=== PATIENT | female | born 1940 | race Caucasian/White ===

== ENCOUNTER 2018-03-18 11:05 | Outpatient (CLI) | payer MEDICARE ==
--- NOTE | 2018-03-19 14:49 | RAD ---
MODIFIED BARIUM SWALLOW PERFORMED WITH A SPEECH THERAPIST: Date: 03/18/18 HISTORY: Dysphagia following cerebrovascular disease and unspecified dysphagia. Feeding difficulties. TECHNIQUE: Patient was given puree, nectar thick liquid via cup, thin liquid via cup, mechanical soft texture fo od, regular texture food, and a barium tablet. FINDINGS: Patient showed some residue with pureed textures in the vallecular region. Patient had silent penetra tion with thin liquids and nectar thick liquids. IMPRESSION: Some persistent residue with various consistencies, fairly deep penetration observed on some of these images. Please refer to speech therapist report for additional findings. POS: [facility]
== END 2018-03-18 11:06 | disposition home or self-care (01) ==
PROVIDERS: ATTEND Specialist
DX: I69.891 Dysphagia following other cerebrovascular disease (principal)
CPT/HCPCS: 74230; G8996-GN-CJ; G8997-GN-CJ; G8998-GN-CJ

== ENCOUNTER 2018-07-01 13:09 | Outpatient (CLI) | payer MEDICARE ==
--- NOTE | 2018-07-01 15:14 | RAD ---
CERVICAL SPINE 3 VIEWS: HISTORY: M50.30, cervical disk degeneration with neck pain radiating to right shoulder. Flexion, extension, and neutral upright lateral views of the cervical spine are performed. Very mild anterolisthesis of C4 on C5 and retrolisthesis of C5 on C6 with disk-osteophytosis and fairly marked facet arthrosis. No prevertebral soft tissue swelling. No evidence for abnormal translation betwee n flexion and extension. IMPRESSION: Cervical spondylosis with mild anterolisthesis of C4 on C5 and retrolisthesis of C5 on C6 without abn ormal translation between flexion and extension. POS: [facility]
--- NOTE | 2018-07-01 15:30 | MRI ---
MRI CERVICAL SPINE WITHOUT CONTRAST: Date: 07/01/18 Multiplanar, multisequential imaging of cervical spine obtained. INDICATION: Cervical spine. Cervical region disc degeneration. Neck pain and right shoulder pain. Correlation made to CT cervical spine dated 11/17/17. FINDINGS: The cervical vertebra maintain height and alignment. There are mild degenerative changes seen. Anteri or osteophytes in the cervical vertebra. Slight anterolisthesis at C4-5 and slight posterolisthesis a t C5-6 is stable from the prior CT. Posterior disc bulge and spondylosis at C3-4 flattens the thecal sac and mildly effaces the anterior subarachnoid space. Right foraminal stenosis due to facet and uncinate hypertrophy. At C4-5, there is slight anterolisthesis with posterior disc bulge and spondylosis flattening the the juanito sac and effacing the anterior subarachnoid space. No cord impingement. No significant foraminal s tenosis. At C5-6, there is slight posterolisthesis, as noted above. Posterior disc bulge and spondylosis abuts the anterior cord. Right foraminal encroachment due to facet and uncinate hypertrophy. At C6-7, mild disc bulge and spondylosis flatten thecal sac. The anterior subarachnoid space is prese rved. No evidence of significant foraminal stenosis. Cervical cord signal appears normal. IMPRESSION: There are degenerative changes of the cervical spine. The posterior disc bulge and spondylytic change abut the cord at C5-6. There are changes at other levels as described above. POS: [facility]
== END 2018-07-01 13:10 | disposition home or self-care (01) ==
LOC: TBSIIMAG 13:09
PROVIDERS: ATTEND Neurological Surgery
DX: M50.30 Other cervical disc degeneration, unspecified cervical region (principal); M47.812 Spondylosis without myelopathy or radiculopathy, cervical region; M43.12 Spondylolisthesis, cervical region; M50.21 Other cervical disc displacement, high cervical region
CPT/HCPCS: 72040; 72141

== ENCOUNTER 2018-08-25 16:25 | Observation (INO) | payer MEDICARE, OTHER ==
[2018-08-25] MEDS ORDERED: Acetaminophen 500 MG TAB ONE (17:58)
[2018-08-25] MEDS ORDERED: HYDROcodone/Acetaminophen 10/325 mg Tablet PO PRN (18:08)
[2018-08-25] MEDS ORDERED: Acetaminophen 325 MG TAB PO PRN (18:08)
[2018-08-25] MEDS ORDERED: Senokot S 8.6-50 MG TAB PO PRN (18:08)
[2018-08-25 19:45] LABS: Troponin I Less than 0.010 ng/mL (< 0.028)
[2018-08-25] MEDS: Sodium Chloride 0.9% 1,000 ML IV SCH (19:50)
[2018-08-25 20:11] VITALS: BMI 21.8
[2018-08-25] MEDS: Oseltamivir 75 MG CAP PO SCH (20:49)
[2018-08-25] MEDS: Famotidine 20 MG TAB PO SCH (20:50)
[2018-08-25] MEDS ORDERED: Lorazepam 0.5 MG TAB PO PRN (22:19)
[2018-08-25] MEDS ORDERED: Cyclobenzaprine 10 MG TAB PO PRN (22:19)
--- NOTE | 2018-08-26 00:37 | HP ---
PRIMARY CARE PHYSICIAN: Dr. Torres. BASKET MENDER: Dr. Ellsworth. CHIEF COMPLAINT: Chest pain, back pain, and generalized weakness. HISTORY OF PRESENT ILLNESS: Ms. Aguilar is a 77-year-old female who reported to the emergency room today. In [place], reported chest pain for the last 3 days. It radiated to her back. Initially in [place], her blood pressure was 185/70. During the workup there, she was given some nitroglycerin paste, aspirin, and labetalol for her blood pressure. She did test positive for flu B. She was given dose of Tamiflu. She reports the pain is 5/10 in her left side middle, describes as an achy sensation. She does deny any chills, fever, shortness of breath, cough, rhinorrhea, abdominal pain, nausea, vomiting, diarrhea. Does have a pertinent past medical history including CAD, hypothyroidism, peripheral neuropathy. Reports she takes hydrocodone for this on a daily basis, which is given to her by her pain doctor, Dr. Webster. The patient was subsequently transferred to the emergency room at [facility] ER and admitted for chest pain. EKG in the emergency room in [place] shows normal sinus rhythm, rate is 65 with no ectopics, ST segments, T-waves are normal, conduction normal, axis is normal. Initial troponin is undetectable. The patient admitted to the observation unit for further management. PAST MEDICAL HISTORY: Coronary artery disease. Reports that she has had a stress test in the past in the Dr. Ellsworth' office, which she reports is normal. Does have hypothyroidism, peripheral neuropathy to bilateral lower extremities. PAST SURGICAL HISTORY: Includes hysterectomy, cardiac ablation, internal TENS unit in right hip. Reports that she did have a neurostimulator in the right hip, which was taken out. PSYCHIATRIC HISTORY: Includes anxiety and depression. SOCIAL HISTORY: Denies alcohol use. Denies drug use. Denies smoking history. Lives at home with family. ALLERGIES: NONE. CURRENT MEDICATIONS: Include, 1. Ativan 1 mg p.r.n. as needed for anxiety. 2. Gabapentin 600 mg p.o. b.i.d. 3. Estradiol 1 mg p.o. once daily. 4. Levothyroxine 137 mcg p.o. q.a.m. REVIEW OF SYSTEMS: CONSTITUTIONAL: The patient denies chills, fever, or malaise. EYES: Denies any eye pain. Denies any vision changes. ENT: Denies any rhinorrhea or sore throat CARDIOVASCULAR: Reports chest pain. Denies diaphoresis. Denies dyspnea on exertion. RESPIRATORY: Denies cough or shortness of breath. GI: Denies abdominal pain. Denies nausea, vomiting, or diarrhea. MUSCULOSKELETAL: Denies any recent falls. Does report myalgias. Reports chest pain is achy and radiates to her back. NEUROLOGIC: Does report headache. Denies dizziness. Denies any focal weakness. Denies mental status changes. All other systems reviewed and negative unless mentioned in the HPI. PHYSICAL EXAMINATION: VITAL SIGNS: Blood pressure 184/80, pulse is 65, respirations 15, temperature is 98, O2 sats are 100% on room air. CONSTITUTIONAL: The patient appears nontoxic, appears pain free, is alert and oriented to person, place, and time. HEENT: Head is atraumatic and normocephalic. Eyes, pupils are equally round and reactive to light. Extraocular muscles are intact. NECK: Normal range of motion. Trachea is midline. RESPIRATORY/CHEST: Breath sounds are clear. No signs of respiratory distress. CARDIOVASCULAR: Heart rate is normal rate and rhythm. Heart sounds are normal S1 and S2. ABDOMEN: Nontender on palpation. Bowel sounds are heard. EXTREMITIES: Upper extremities, normal range of motion. Radial pulses are equal bilaterally. Lower extremities, normal range of motion. Pedal pulses are equal bilaterally. No edema is noted. NEUROLOGIC: Oriented to person, place, and time. Speech is normal. Gait was not assessed. SKIN: Warm, dry, and normal in color. No rash is noted. ASSESSMENT AND PLAN: 1. Chest pain, possibly related to flu B diagnosis. We will trend troponins. 2. Flu B. We will continue the Tamiflu. We will give the patient some gentle hydration with IV fluid at 75 mL/hr. Tylenol or Motrin as needed for myalgias and headache. 3. Hypothyroidism. We will continue home medications. We will check thyroid level in the morning. 4. Peripheral neuropathy. We will continue her home medications. 5. Gastrointestinal and deep venous thrombosis prophylaxis will be started. 6. Hospital course will be dependent on clinical findings. Job ID: [id number]
[2018-08-26 05:11] LABS: #Basophils 0.1 thou/uL (0.0-0.2); #Eosinphils 0.1 thou/uL (0.0-0.7); #Lymphocytes 2.8 thou/uL (1.20-3.40); #Monocytes 0.5 thou/uL (0.11-0.59); #Neutrophils 3.9 thou/uL (1.40-6.50); %Basophils 1.1 % (0.0-1.0); %Eosinophils 1.7 % (0.0-10.0); %Lymphocytes 37.8 % (21.0-51.0); %Monocytes 6.4 % (0.0-10.0); Hemoglobin 12.9 g/dL (12.0-16.0); Mean Corpuscular HGB CONC 33.5 g/dL (32.0-36.0); Mean Corpuscular Hemoglobin 33.8 pg (27.0-31.0); Mean Platelet Volume 6.8 fL (7.4-10.4); Platelet Count 236 thou/uL (130-400); RBC Distribution Width 11.7 % (11.5-14.5); White Blood Cell (WBC) Count 7.4 thou/uL (4.8-10.8)
[2018-08-26 05:49] LABS: Anion Gap 18 mmol/L (10-20); BUN (Urea Nitrogen) 14 mg/dL (9.8-20.1); Calc. Creatinine Clearance 69 mL/min (70-130); Calcium 9.4 mg/dL (7.8-10.44); Carbon Dioxide 18 mmol/L (23-31); Chloride 106 mmol/L (98-107); Cholesterol 204 mg/dl (< 200 Desired); Estimated GFR-MDRD 79; Glucose 86 mg/dL (83-110); HDL Cholesterol 68 mg/dL (>60 Neg Risk); LDL Cholesterol, Calculated 118 mg/dL; Potassium 3.8 mmol/L (3.5-5.1); Sodium 138 mmol/L (136-145); Triglycerides 90 mg/dL (Less than 150)
[2018-08-26 05:51] LABS: Free T4 (Free Thyroxine) 0.62 ng/dL (0.70-1.48)
[2018-08-26 05:59] LABS: Thyroid Stimulating Hormone 32.2403 uIU/mL (0.35-4.94)
[2018-08-26] MEDS ORDERED: Levothyroxine Sodium 112 MCG TAB PO SCH (06:00)
[2018-08-26] MEDS ORDERED: Levothyroxine Sodium 25 MCG TAB PO SCH (06:00)
[2018-08-26] MEDS: Oseltamivir 75 MG CAP PO SCH (07:45)
[2018-08-26] MEDS: Famotidine 20 MG TAB PO SCH (07:45)
[2018-08-26] MEDS: Sodium Chloride 0.9% 1,000 ML IV SCH (07:46)
[2018-08-26] MEDS ORDERED: hydrALAZINE 20 MG/ML VIAL SLOW IVP PRN (08:49)
[2018-08-26] MEDS ORDERED: Gabapentin 300 MG CAP PO SCH (09:00)
[2018-08-26] MEDS ORDERED: Estradiol 1 MG TAB PO SCH (09:00)
[2018-08-26] MEDS ORDERED: Enoxaparin Sodium 40 MG/0.4 ML SYRINGE SC SCH (09:00)
[2018-08-26] MEDS ORDERED: Lisinopril 2.5 MG TAB PO SCH (09:00)
--- NOTE | 2018-08-26 10:35 | PDOC.PN ---
- Subjective Encounter Start Date: 08/26/18 Encounter Start Time: 10:30 Patient lying in bed, she reports not feeling well this morning. She is positive for influenza B. She denies chest pain, palpitations or abdominal pain. BP elevated this morning, but she denies taking any medications at home for blood pressure. TSH also elevated with low T4, but she reports taking synthroid regularly. - Objective MAR Reviewed: Yes Vital Signs & Weight: Vital Signs (12 hours) Temp Pulse Resp BP Pulse Ox 08/26/18 09:24 71 08/26/18 07:25 98.7 F 71 12 200/79 H 96 08/26/18 05:17 97.7 F 73 18 160/94 H 98 08/25/18 23:57 97.3 F L 62 12 159/74 H 95 Weight Weight 143 lb 11.2 oz Result Diagrams: 08/26/18 04:24 08/26/18 04:24 Radiology Reviewed by me: Yes Phys Exam - Physical Examination Constitutional: NAD HEENT: PERRLA, oral pharynx no lesions Neck: no nodes, supple, full ROM Respiratory: no wheezing, clear to auscultation bilateral Cardiovascular: RRR, no significant murmur Gastrointestinal: soft, non-tender, positive bowel sounds Musculoskeletal: no edema, pulses present Neurological: non-focal, moves all 4 limbs Lymphatic: no nodes Psychiatric: A&O x 3 Deviation from normal: Flat affect Skin: no rash, cap refill <2 seconds Dx/Plan (1) Influenza B Code(s): J10.1 - FLU DUE TO OTH IDENT INFLUENZA VIRUS W OTH RESP MANIFEST Status: Acute (2) Hypertension Code(s): I10 - ESSENTIAL (PRIMARY) HYPERTENSION Status: Acute (3) Hypothyroidism Code(s): E03.9 - HYPOTHYROIDISM, UNSPECIFIED Status: Chronic - Plan cont current plan of care, PT/OT, DVT proph w/lovenox * Continue tamiflu BID * TSH high with low T4, increase levothyroxine to 150mcg * Start IV hydralazine prn SBP >170, add lisinopril 2.5mg daily and monitor BPs * Continue other home medications * PT * Recheck BMP in am replace electrolytes as needed.
--- NOTE | 2018-08-26 16:13 | HP ---
HISTORY OF PRESENT ILLNESS: This patient is an elderly lady who presented with flu-like symptoms, diffuse aching, back pain. In the emergency room, she was found to have influenza B. PHYSICAL EXAMINATION: Physical examination was unrevealing. CHEST: Clear. HEART: Regular rate and rhythm. ASSESSMENT AND PLAN: She was started on Tamiflu. She has abnormalities of her thyroid system, which are being adjusted. Currently, she has improved. Continue on Tamiflu. Thyroid medicine has been changed. Hopefully, she will be able to be discharged in the next 24 hours on medication for flu. No evidence at this time for cardiovascular workup. Job ID: [id number]
[2018-08-26 16:39] VITALS: BP 133/61; TEMP 98
[2018-08-27] MEDS ORDERED: Levothyroxine Sodium 125 MCG TAB PO SCH (06:00)
[2018-08-27] MEDS ORDERED: Levothyroxine 150 MCG TAB PO SCH (06:00)
--- NOTE | 2018-08-28 21:00 | EKG ---
Test Reason : CHEST PAIN Blood Pressure : / mmHG Vent. Rate : 065 BPM Atrial Rate : 065 BPM P-R Int : 140 ms QRS Dur : 084 ms QT Int : 460 ms P-R-T Axes : 027 045 022 degrees QTc Int : 478 ms Normal sinus rhythm Normal ECG Confirmed by DENISE LAM, MANUEL Cassidy ([id number]), editor school photograph PABLO SLOAN ([id number]) on 08/28/2018 9:00:27 PM Referred By: DENISE Confirmed By:MANUEL WALKER MD
== END 2018-08-26 17:31 | disposition home or self-care (01) ==
LOC: ERS 16:25 → 2SW 17:22
PROVIDERS: ADMIT Emergency Medicine; ATTEND Emergency Medicine
DX: R07.9 Chest pain, unspecified (principal); J10.1 Influenza due to other identified influenza virus with other respiratory manifestations; E03.9 Hypothyroidism, unspecified; G62.9 Polyneuropathy, unspecified; F41.8 Other specified anxiety disorders; F32.9 Major depressive disorder, single episode, unspecified; Z79.899 Other long term (current) drug therapy
CPT/HCPCS: 80048; 80061; 84439; 84443; 84481; 84484; 85025; 85379; 93005; 96372; 96374; 97116; 97139; 99285; G0378 ×2; 36415; J0360; J1650

== ENCOUNTER 2020-12-08 13:23 | Inpatient (IN) | payer MEDICARE, OTHER ==
[2020-12-08 16:46] VITALS: BMI 20.8
[2020-12-08 19:09] LABS: Troponin I 2.075 ng/mL (< 0.028)
[2020-12-08] MEDS ORDERED: Enoxaparin Sodium 60 MG/0.6 ML SYRINGE SC SCH (19:30)
[2020-12-08] MEDS ORDERED: Nitroglycerin 2% Ointment 1 INCH/1 GM Packet TOP SCH (19:30)
[2020-12-08] MEDS: Morphine 2 MG/ML VIAL SLOW IVP PRN (19:39)
[2020-12-08] MEDS ORDERED: HYDROcodone/Acetaminophen 5/325 mg Tablet PO PRN (19:56)
[2020-12-08] MEDS ORDERED: Acetaminophen 325 MG TAB PO PRN (19:56)
[2020-12-08] MEDS ORDERED: Ondansetron ODT 4 MG TAB PO PRN (19:56)
[2020-12-08] MEDS ORDERED: Ondansetron PF 4 MG/2 ML Vial IVP PRN (19:56)
[2020-12-08] MEDS ORDERED: Lorazepam 1 MG TAB PO PRN (22:56)
[2020-12-09 00:08] LABS: SARS-CoV-2 PCR by NAA Not Detected (NotDetected)
[2020-12-09] MEDS: Morphine 2 MG/ML VIAL SLOW IVP PRN ×2 (02:12→12:27)
[2020-12-09] MEDS: Levothyroxine Sodium 112 MCG TAB PO SCH (04:44)
[2020-12-09] MEDS: Levothyroxine Sodium 25 MCG TAB PO SCH (04:44)
[2020-12-09 04:58] LABS: #Basophils 0.1 thou/uL (0.0-0.2); #Eosinphils 0.2 thou/uL (0.0-0.7); #Lymphocytes 2.9 thou/uL (1.20-3.40); #Monocytes 0.5 thou/uL (0.11-0.59); #Neutrophils 2.7 thou/uL (1.40-6.50); %Basophils 0.9 % (0.0-1.0); %Eosinophils 2.7 % (0.0-10.0); %Lymphocytes 46.2 % (21.0-51.0); %Monocytes 7.2 % (0.0-10.0); Hemoglobin 10.3 g/dL (12.0-16.0); Mean Corpuscular HGB CONC 33.1 g/dL (32.0-36.0); Mean Corpuscular Hemoglobin 32.4 pg (27.0-31.0); Mean Platelet Volume 7.8 fL (7.4-10.4); Platelet Count 170 thou/uL (130-400); RBC Distribution Width 11.5 % (11.5-14.5); Red Blood Cell (RBC) Count 3.17 mill/uL (4.20-5.40); White Blood Cell (WBC) Count 6.3 thou/uL (4.8-10.8)
[2020-12-09 05:22] LABS: Anion Gap 8 mmol/L (10-20); BUN (Urea Nitrogen) 15 mg/dL (9.8-20.1); Calc. Creatinine Clearance 69 mL/min (70-130); Calcium 8.7 mg/dL (7.8-10.44); Carbon Dioxide 24 mmol/L (23-31); Chloride 111 mmol/L (98-107); Glucose 94 mg/dL (83-110); Potassium 4.4 mmol/L (3.5-5.1); Sodium 139 mmol/L (136-145)
[2020-12-09] MEDS ORDERED: Loratadine 10 MG TAB PO PRN (07:57)
[2020-12-09] MEDS ORDERED: Cepastat Lozenges 1 LOZ PO PRN (07:57)
[2020-12-09] MEDS ORDERED: Zolpidem Tartrate 5 MG TAB PO PRN (07:57)
[2020-12-09] MEDS ORDERED: Calcium Carbonate 500 MG ChewTAB PO PRN (07:57)
[2020-12-09] MEDS ORDERED: Bisacodyl 5 MG TAB PO PRN (07:57)
[2020-12-09] MEDS ORDERED: hydrALAZINE 20 MG/ML VIAL SLOW IVP PRN (07:57)
[2020-12-09] MEDS ORDERED: GUAIFENESIN SF SOLN 200 MG/10 ML UDCUP PO PRN (07:57)
[2020-12-09] MEDS ORDERED: Sodium Chloride 0.65% Nasal 44 ML BOT EA NARE PRN (07:57)
[2020-12-09] MEDS ORDERED: Loperamide HCl 2 MG CAP PO PRN (07:57)
[2020-12-09] MEDS ORDERED: Senokot S 8.6-50 MG TAB PO PRN (07:57)
[2020-12-09 08:26] LABS: Critical Call Chem Troponin I DECREASING
[2020-12-09 08:48] LABS: CKMB 6.8 ng/mL (0-6.6)
[2020-12-09] MEDS ORDERED: Aspirin 81 mg Enteric Coated Tablet PO SCH (09:00)
[2020-12-09] MEDS ORDERED: Nitroglycerin 2% Ointment 1 INCH/1 GM Packet TOP SCH (09:00)
[2020-12-09] MEDS: Gabapentin 300 MG CAP PO SCH ×4 (09:47→20:44)
[2020-12-09] MEDS: Enoxaparin Sodium 60 MG/0.6 ML SYRINGE SC SCH ×2 (09:47→20:43)
[2020-12-09] MEDS: Aspirin 81 mg Enteric Coated Tablet PO SCH (09:49)
[2020-12-09] MEDS: Estradiol 1 MG TAB PO SCH (09:49)
[2020-12-09 10:17] LABS: Hemoglobin 11.2 g/dL (12.0-16.0); Platelet Count 167 thou/uL (130-400)
[2020-12-09] MEDS ORDERED: Communication Order-Pharmacy FS SCH (14:15)
[2020-12-09] MEDS: Atorvastatin Calcium 40 MG TAB PO SCH (20:43)
[2020-12-09] MEDS: Metoprolol Tartrate 25 MG TAB PO SCH (20:44)
[2020-12-10 05:15] LABS: #Basophils 0.1 thou/uL (0.0-0.2); #Eosinphils 0.2 thou/uL (0.0-0.7); #Monocytes 0.6 thou/uL (0.11-0.59); #Neutrophils 4.6 thou/uL (1.40-6.50); %Basophils 1.2 % (0.0-1.0); %Eosinophils 2.3 % (0.0-10.0); %Lymphocytes 35.5 % (21.0-51.0); %Monocytes 6.9 % (0.0-10.0); Hemoglobin 11.8 g/dL (12.0-16.0); Mean Corpuscular HGB CONC 32.8 g/dL (32.0-36.0); Mean Corpuscular Hemoglobin 31.8 pg (27.0-31.0); Mean Corpuscular Volume 96.9 fL (78.0-98.0); Mean Platelet Volume 7.6 fL (7.4-10.4); Platelet Count 201 thou/uL (130-400); RBC Distribution Width 11.4 % (11.5-14.5); Red Blood Cell (RBC) Count 3.72 mill/uL (4.20-5.40); White Blood Cell (WBC) Count 8.5 thou/uL (4.8-10.8)
[2020-12-10 05:40] LABS: ALT (SGPT) 9 U/L (8-55); AST (SGOT) 18 U/L (5-34); Albumin 3.6 g/dL (3.4-4.8); Alkaline Phosphatase 86 U/L (40-110); Anion Gap 13 mmol/L (10-20); BUN (Urea Nitrogen) 11 mg/dL (9.8-20.1); Bilirubin, Total 0.7 mg/dL (0.2-1.2); Calc. Creatinine Clearance 66 mL/min (70-130); Carbon Dioxide 22 mmol/L (23-31); Cardiac Risk 2.9 (Less than 4.5); Chloride 107 mmol/L (98-107); Cholesterol 149 mg/dl (< 200 Desired); Globulin 2.9 g/dL (2.4-3.5); Glucose 99 mg/dL (83-110); HDL Cholesterol 52 mg/dL (>60 Neg Risk); LDL Cholesterol, Calculated 81 mg/dL; Magnesium 1.8 mg/dL (1.6-2.6); Potassium 3.8 mmol/L (3.5-5.1); Protein, Total 6.5 g/dL (5.8-8.1); Sodium 138 mmol/L (136-145); Triglycerides 80 mg/dL (Less than 150)
[2020-12-10] MEDS: Levothyroxine Sodium 112 MCG TAB PO SCH (05:46)
[2020-12-10] MEDS: Metoprolol Tartrate 25 MG TAB PO SCH ×2 (05:46→21:20)
[2020-12-10] MEDS: Aspirin 81 mg Enteric Coated Tablet PO SCH (05:46)
[2020-12-10] MEDS: Levothyroxine Sodium 25 MCG TAB PO SCH (05:46)
[2020-12-10] MEDS ORDERED: Heparin 0 ML ONE (08:47)
[2020-12-10] MEDS ORDERED: Lidocaine 1% (PF) 30 ML VIAL ONE ×2 (08:47→11:11)
[2020-12-10] MEDS ORDERED: Iopamidol-370 76% 500 ML 1 ML ONE (09:26)
[2020-12-10] MEDS ORDERED: Iopamidol 370 76% 50 ML VIAL FS ONE (09:58)
[2020-12-10] MEDS ORDERED: Iopamidol 370 76% 100 ML VIAL ONE (09:58)
[2020-12-10] MEDS: Estradiol 1 MG TAB PO SCH (10:46)
[2020-12-10] MEDS: Gabapentin 300 MG CAP PO SCH ×4 (10:46→21:20)
[2020-12-10] MEDS ORDERED: Nitroglycerin 100MG/250ML BOT 250 ML ONE (11:53)
[2020-12-10] MEDS ORDERED: Verapamil 5 MG/2 ML VIAL ONE (11:53)
[2020-12-10] MEDS ORDERED: Heparin 10,000 UNITS/ 10 ML VIAL ONE (11:53)
[2020-12-10] MEDS ORDERED: Midazolam HCl 2 mg/2 ml Vial ONE (11:56)
[2020-12-10] MEDS ORDERED: TICAGRELOR 90 MG TABLET ONE (12:50)
[2020-12-10] MEDS ORDERED: TICAGRELOR 90 MG TABLET PO SCH (13:18)
[2020-12-10 17:46] LABS: #Lymphocytes 1.5 thou/uL (1.20-3.40); #Monocytes 0.7 thou/uL (0.11-0.59); #Neutrophils 8.1 thou/uL (1.40-6.50); %Basophils 0.4 % (0.0-1.0); %Eosinophils 0.5 % (0.0-10.0); %Lymphocytes 14.6 % (21.0-51.0); %Monocytes 6.9 % (0.0-10.0); %Neutrophils 77.5 % (42.0-75.0); Hemoglobin 12.8 g/dL (12.0-16.0); Mean Corpuscular HGB CONC 32.9 g/dL (32.0-36.0); Mean Corpuscular Hemoglobin 31.6 pg (27.0-31.0); Mean Platelet Volume 7.2 fL (7.4-10.4); Platelet Count 225 thou/uL (130-400); RBC Distribution Width 11.2 % (11.5-14.5); Red Blood Cell (RBC) Count 4.06 mill/uL (4.20-5.40); White Blood Cell (WBC) Count 10.5 thou/uL (4.8-10.8)
[2020-12-10 17:55] LABS: INR-International Normal Ratio 1.1; Prothrombin Time 14.3 sec (12.0-14.7)
[2020-12-10 17:56] LABS: PTT 32.2 sec (22.9-36.1)
[2020-12-10 18:18] LABS: ALT (SGPT) 12 U/L (8-55); AST (SGOT) 21 U/L (5-34); Albumin 3.9 g/dL (3.4-4.8); Alkaline Phosphatase 98 U/L (40-110); Anion Gap 17 mmol/L (10-20); BUN (Urea Nitrogen) 11 mg/dL (9.8-20.1); Bilirubin, Total 1.3 mg/dL (0.2-1.2); CK (CPK) 95 U/L (29-168); Calc. Creatinine Clearance 66 mL/min (70-130); Calcium 9.2 mg/dL (7.8-10.44); Carbon Dioxide 18 mmol/L (23-31); Chloride 104 mmol/L (98-107); Globulin 3.2 g/dL (2.4-3.5); Glucose 92 mg/dL (83-110); Potassium 3.6 mmol/L (3.5-5.1); Protein, Total 7.1 g/dL (5.8-8.1); Sodium 135 mmol/L (136-145)
[2020-12-10 18:28] LABS: CKMB 3.3 ng/mL (0-6.6)
[2020-12-10] MEDS: Atorvastatin Calcium 40 MG TAB PO SCH (21:20)
[2020-12-10] MEDS: TICAGRELOR 90 MG TABLET PO SCH (21:21)
[2020-12-11 04:37] LABS: #Eosinphils 0.1 thou/uL (0.0-0.7); #Lymphocytes 1.7 thou/uL (1.20-3.40); #Monocytes 0.9 thou/uL (0.11-0.59); #Neutrophils 7.3 thou/uL (1.40-6.50); %Basophils 0.1 % (0.0-1.0); %Eosinophils 0.7 % (0.0-10.0); %Monocytes 8.8 % (0.0-10.0); %Neutrophils 73.4 % (42.0-75.0); Mean Corpuscular HGB CONC 34.8 g/dL (32.0-36.0); Mean Corpuscular Hemoglobin 33.3 pg (27.0-31.0); Mean Corpuscular Volume 95.5 fL (78.0-98.0); Mean Platelet Volume 7.2 fL (7.4-10.4); Platelet Count 222 thou/uL (130-400); RBC Distribution Width 11.4 % (11.5-14.5)
[2020-12-11] MEDS: Levothyroxine Sodium 112 MCG TAB PO SCH (04:56)
[2020-12-11] MEDS: Levothyroxine Sodium 25 MCG TAB PO SCH (04:56)
[2020-12-11 05:00] LABS: ALT (SGPT) 12 U/L (8-55); AST (SGOT) 22 U/L (5-34); Albumin 3.9 g/dL (3.4-4.8); Alkaline Phosphatase 96 U/L (40-110); Anion Gap 19 mmol/L (10-20); BUN (Urea Nitrogen) 12 mg/dL (9.8-20.1); Calc. Creatinine Clearance 58 mL/min (70-130); Calcium 9.3 mg/dL (7.8-10.44); Carbon Dioxide 16 mmol/L (23-31); Chloride 104 mmol/L (98-107); Globulin 3.3 g/dL (2.4-3.5); Glucose 76 mg/dL (83-110); Potassium 3.8 mmol/L (3.5-5.1); Protein, Total 7.2 g/dL (5.8-8.1); Sodium 135 mmol/L (136-145)
[2020-12-11] MEDS: Estradiol 1 MG TAB PO SCH (09:05)
[2020-12-11] MEDS: Aspirin 81 mg Enteric Coated Tablet PO SCH (09:05)
[2020-12-11] MEDS: Gabapentin 300 MG CAP PO SCH ×4 (09:05→21:07)
[2020-12-11] MEDS: Metoprolol Tartrate 25 MG TAB PO SCH ×2 (09:06→21:07)
[2020-12-11] MEDS: TICAGRELOR 90 MG TABLET PO SCH (09:06)
[2020-12-11] MEDS: Lisinopril 10 MG TAB PO SCH (10:13)
[2020-12-11 11:49] LABS: Hemoglobin A1c 5.2 % (4.0-6.0)
[2020-12-11] MEDS ORDERED: Lorazepam 2 MG/ML VIAL SLOW IVP SCH (13:00)
[2020-12-11] MEDS ORDERED: Sodium Chloride 0.9% 250 ML IVPB SCH (16:30)
[2020-12-11] MEDS ORDERED: Clopidogrel Bisulfate 75 MG TAB PO SCH ×2 (17:15→18:00)
[2020-12-11] MEDS: Atorvastatin Calcium 40 MG TAB PO SCH (21:06)
[2020-12-12] MEDS: Levothyroxine Sodium 25 MCG TAB PO SCH (05:17)
[2020-12-12] MEDS: Levothyroxine Sodium 112 MCG TAB PO SCH (05:17)
[2020-12-12] MEDS: Clopidogrel Bisulfate 75 MG TAB PO SCH (08:46)
[2020-12-12] MEDS: Aspirin 81 mg Enteric Coated Tablet PO SCH (08:46)
[2020-12-12] MEDS: Gabapentin 300 MG CAP PO SCH ×4 (08:46→20:48)
[2020-12-12] MEDS: Estradiol 1 MG TAB PO SCH (08:46)
[2020-12-12] MEDS: Lisinopril 10 MG TAB PO SCH (08:56)
[2020-12-12] MEDS: Metoprolol Tartrate 25 MG TAB PO SCH ×2 (08:57→20:51)
[2020-12-12] MEDS ORDERED: Sodium Chloride 0.9% 500 ML IV SCH ×2 (12:30→13:45)
[2020-12-12] MEDS: Atorvastatin Calcium 40 MG TAB PO SCH (20:48)
[2020-12-13] MEDS: Levothyroxine Sodium 25 MCG TAB PO SCH (05:06)
[2020-12-13] MEDS: Levothyroxine Sodium 112 MCG TAB PO SCH (05:06)
[2020-12-13] MEDS: Morphine 2 MG/ML VIAL SLOW IVP PRN (08:53)
[2020-12-13] MEDS: Clopidogrel Bisulfate 75 MG TAB PO SCH (08:58)
[2020-12-13] MEDS: Gabapentin 300 MG CAP PO SCH ×2 (08:58→13:25)
[2020-12-13] MEDS: Aspirin 81 mg Enteric Coated Tablet PO SCH (08:58)
[2020-12-13] MEDS: Estradiol 1 MG TAB PO SCH (08:58)
[2020-12-13] MEDS ORDERED: Lisinopril 2.5 MG TAB PO SCH (09:00)
[2020-12-13 11:49] VITALS: TEMP 97.9
[2020-12-13] MEDS: Metoprolol Tartrate 25 MG TAB PO SCH (11:55)
[2020-12-13 14:03] VITALS: BP 96/44
== END 2020-12-13 14:29 | disposition home or self-care (01) | DRG 246 ==
LOC: 2SW 16:23 → OBSVTOIN 12-09 07:54 → 2SE 12-10 21:12
PROVIDERS: ADMIT Internal Medicine; ATTEND Emergency Medicine
PROC: 027034Z Dilation of Coronary Artery, One Artery with Drug-eluting Intraluminal Device, Percutaneous Approach (ICD-10-PCS; principal; 2020-12-10)
PROC: 4A023N7 Measurement of Cardiac Sampling and Pressure, Left Heart, Percutaneous Approach (ICD-10-PCS; 2020-12-10)
PROC: B2111ZZ Fluoroscopy of Multiple Coronary Arteries using Low Osmolar Contrast (ICD-10-PCS; 2020-12-10)
DX: I21.4 Non-ST elevation (NSTEMI) myocardial infarction (principal); I63.532 Cerebral infarction due to unspecified occlusion or stenosis of left posterior cerebral artery; R47.01 Aphasia; I25.10 Atherosclerotic heart disease of native coronary artery without angina pectoris; Z20.822 Contact with and (suspected) exposure to COVID-19; E03.9 Hypothyroidism, unspecified; F41.9 Anxiety disorder, unspecified; G62.9 Polyneuropathy, unspecified; Z60.2 Problems related to living alone; D64.9 Anemia, unspecified; F32.9 Major depressive disorder, single episode, unspecified; K21.9 Gastro-esophageal reflux disease without esophagitis; I25.5 Ischemic cardiomyopathy; I48.0 Paroxysmal atrial fibrillation; I51.89 Other ill-defined heart diseases; R47.1 Dysarthria and anarthria; R29.703 NIHSS score 3; R40.0 Somnolence; T42.4X5A Adverse effect of benzodiazepines, initial encounter; I95.9 Hypotension, unspecified; Z90.710 Acquired absence of both cervix and uterus; Z90.89 Acquired absence of other organs; Z79.899 Other long term (current) drug therapy; Z79.82 Long term (current) use of aspirin; Z79.890 Hormone replacement therapy
CPT/HCPCS: 36415; 36416; 70450; 70496; 70498; 70551; 80048; 80053; 80061; 82550; 82553; 83036; 83735; 84100; 84443; 84484; 85025; 85347; 85610; 85730; 92928; 93005; 93010; 93306; 94760; 96372; 96374; 96376; 97139; 99152; 99153; C1874; C9600; G0378; J1644; J1650; J2001; J2060; J2250; J2270; J7030; Q9967; U0003; U0005

== ENCOUNTER 2021-03-25 10:32 | Outpatient (CLI) | payer MEDICARE | END 2021-03-25 10:33 | disposition home or self-care (01) | PROVIDERS: ATTEND Internal Medicine | DX: I69.191 Dysphagia following nontraumatic intracerebral hemorrhage (principal); I69.891 Dysphagia following other cerebrovascular disease; R13.13 Dysphagia, pharyngeal phase | CPT/HCPCS: 74230 ==

== ENCOUNTER 2022-03-07 22:39 | Observation (INO) | payer MEDICARE, OTHER ==
[2022-03-08 02:59] VITALS: BMI 20.8
[2022-03-08] MEDS ORDERED: Levothyroxine Sodium 50 MCG TAB PO SCH (06:00)
[2022-03-08] MEDS ORDERED: Ondansetron ODT 4 MG TAB PO PRN (06:13)
[2022-03-08] MEDS ORDERED: Acetaminophen 650 MG Suppository PR PRN (06:13)
[2022-03-08] MEDS ORDERED: Acetaminophen 325 MG TAB PO PRN (06:13)
[2022-03-08] MEDS ORDERED: Ondansetron PF 4 MG/2 ML Vial IVP PRN (06:13)
[2022-03-08 06:26] LABS: Free T4 (Free Thyroxine) Less than 0.40 ng/dL (0.70-1.48)
[2022-03-08] MEDS ORDERED: Non-Formulary Item 1 EACH (Levothyroxine Sodium [Levothyroxine Sodium] 137 MCG Tablet) PO SCH (07:30)
[2022-03-08 07:33] LABS: #Basophils 0.1 thou/uL (0.0-0.2); #Eosinphils 0.3 thou/uL (0.0-0.7); #Lymphocytes 2.4 thou/uL (1.20-3.40); #Monocytes 0.6 thou/uL (0.11-0.59); #Neutrophils 2.8 thou/uL (1.40-6.50); %Basophils 0.9 % (0.0-1.0); %Eosinophils 4.2 % (0.0-10.0); %Lymphocytes 39.5 % (21.0-51.0); %Monocytes 9.1 % (0.0-10.0); %Neutrophils 46.2 % (42.0-75.0); Hemoglobin 11.4 g/dL (12.0-16.0); Mean Corpuscular HGB CONC 33.4 g/dL (32.0-36.0); Mean Corpuscular Hemoglobin 34.6 pg (27.0-31.0); Mean Platelet Volume 6.9 fL (7.4-10.4); Platelet Count 197 thou/uL (130-400); RBC Distribution Width 13.1 % (11.5-14.5); White Blood Cell (WBC) Count 6.1 thou/uL (4.8-10.8)
[2022-03-08] MEDS: Levothyroxine Sodium 25 MCG TAB PO SCH (07:36)
[2022-03-08] MEDS: Levothyroxine Sodium 112 MCG TAB PO SCH (07:36)
[2022-03-08 07:53] LABS: Anion Gap 12 mmol/L (10-20); BUN (Urea Nitrogen) 18 mg/dL (9.8-20.1); Calc. Creatinine Clearance 53 mL/min (70-130); Calcium 9.1 mg/dL (7.8-10.44); Carbon Dioxide 24 mmol/L (23-31); Chloride 107 mmol/L (98-107); Estimated GFR 73; Glucose 87 mg/dL (83-110); Potassium 4.3 mmol/L (3.5-5.1); Sodium 139 mmol/L (136-145)
[2022-03-08 07:59] LABS: Troponin I 0.019 ng/mL (< 0.028)
[2022-03-08] MEDS: Enoxaparin Sodium 40 MG/0.4 ML SYRINGE SC SCH (10:01)
[2022-03-08] MEDS ORDERED: Gabapentin 300 MG CAP PO SCH (14:15)
[2022-03-08] MEDS ORDERED: Atorvastatin Calcium 40 MG TAB PO SCH (21:00)
[2022-03-08] MEDS: Gabapentin 400 MG CAP PO SCH (21:13)
[2022-03-09 05:25] LABS: #Basophils 0.1 thou/uL (0.0-0.2); #Eosinphils 0.2 thou/uL (0.0-0.7); #Lymphocytes 2.6 thou/uL (1.20-3.40); #Monocytes 0.4 thou/uL (0.11-0.59); #Neutrophils 2.3 thou/uL (1.40-6.50); %Basophils 1.1 % (0.0-1.0); %Eosinophils 3.6 % (0.0-10.0); %Lymphocytes 46.9 % (21.0-51.0); %Monocytes 7.8 % (0.0-10.0); %Neutrophils 40.7 % (42.0-75.0); Hemoglobin 11.2 g/dL (12.0-16.0); Mean Corpuscular HGB CONC 33.4 g/dL (32.0-36.0); Mean Corpuscular Hemoglobin 34.5 pg (27.0-31.0); Mean Platelet Volume 6.9 fL (7.4-10.4); Platelet Count 195 thou/uL (130-400); Red Blood Cell (RBC) Count 3.25 mill/uL (4.20-5.40); White Blood Cell (WBC) Count 5.6 thou/uL (4.8-10.8)
[2022-03-09 05:44] LABS: Anion Gap 13 mmol/L (10-20); BUN (Urea Nitrogen) 16 mg/dL (9.8-20.1); Calc. Creatinine Clearance 56 mL/min (70-130); Calcium 8.8 mg/dL (7.8-10.44); Carbon Dioxide 23 mmol/L (23-31); Chloride 107 mmol/L (98-107); Estimated GFR 77; Glucose 93 mg/dL (83-110); Sodium 139 mmol/L (136-145)
[2022-03-09] MEDS: Levothyroxine Sodium 112 MCG TAB PO SCH (06:28)
[2022-03-09] MEDS: Levothyroxine Sodium 25 MCG TAB PO SCH (06:28)
[2022-03-09] MEDS: Enoxaparin Sodium 40 MG/0.4 ML SYRINGE SC SCH (08:36)
[2022-03-09] MEDS: Gabapentin 400 MG CAP PO SCH (08:36)
[2022-03-09] MEDS ORDERED: Clopidogrel Bisulfate 75 MG TAB PO SCH (09:00)
[2022-03-09] MEDS ORDERED: Aspirin 81 mg Enteric Coated Tablet PO SCH (09:00)
[2022-03-09 09:11] LABS: Anion Gap 12 mmol/L (10-20); BUN (Urea Nitrogen) 13 mg/dL (9.8-20.1); Calc. Creatinine Clearance 52 mL/min (70-130); Calcium 9.5 mg/dL (7.8-10.44); Carbon Dioxide 26 mmol/L (23-31); Chloride 105 mmol/L (98-107); Estimated GFR 72; Glucose 93 mg/dL (83-110); Sodium 139 mmol/L (136-145)
[2022-03-09 10:41] VITALS: BP 135/65; TEMP 98.4
== END 2022-03-09 12:13 | disposition home or self-care (01) ==
LOC: NEURO 22:44
PROVIDERS: ADMIT Internal Medicine; ATTEND Internal Medicine
DX: I95.1 Orthostatic hypotension (principal); E03.9 Hypothyroidism, unspecified; I50.20 Unspecified systolic (congestive) heart failure; F03.90 Unspecified dementia, unspecified severity, without behavioral disturbance, psychotic disturbance, mood disturbance, and anxiety; I25.2 Old myocardial infarction; I08.3 Combined rheumatic disorders of mitral, aortic and tricuspid valves; I25.10 Atherosclerotic heart disease of native coronary artery without angina pectoris; E78.00 Pure hypercholesterolemia, unspecified; Z86.16 Personal history of COVID-19; Z86.73 Personal history of transient ischemic attack (TIA), and cerebral infarction without residual deficits; Z79.02 Long term (current) use of antithrombotics/antiplatelets; Z79.82 Long term (current) use of aspirin; Z79.899 Other long term (current) drug therapy; Z95.5 Presence of coronary angioplasty implant and graft; Z20.822 Contact with and (suspected) exposure to COVID-19
CPT/HCPCS: 80048 ×3; 84439; 84479; 84481; 84484; 85025 ×2; 93306; 93880; 97116; U0003; U0005; 36415; 96372; G0378; J1650